=== PATIENT | male | born 1995 | race Caucasian/White ===

== ENCOUNTER 2017-08-03 23:20 | Emergency (ER) | payer OTHER ==
[2017-08-03 23:29] VITALS: RESP 18
[2017-08-04] MEDS ORDERED: ONDANSETRON ODT 4 MG TAB PO STA (01:42)
[2017-08-04] MEDS ORDERED: cloNIDine HCL 0.1 MG TAB PO STA (01:42)
--- NOTE | 2017-08-04 01:44 | ED ---
General Adult HPI - General Chief complaint: Recheck/Abnormal Lab/Rx Stated complaint: Suicidal Time Seen by Provider: 08/04/17 00:36 Source: patient Mode of arrival: ambulatory Limitations: no limitations - History of Present Illness Initial comments: 22-year-old male patient presents to the emergency department today complaining of opiate withdrawal. Patient states that he does use heroin. States he last used yesterday. Patient states he was admitted to [facility] today, states that he was not receiving the treatment he felt was appropriate so he did leave the facility. Patient states he changed his mind and went back to the facility however there would not accept him. States that they drove him here. Patient states that he is feeling nauseated, shaky, and has a headache. States he is having hot and cold flashes. He states that feels like he is withdrawing from opiates. He denies any suicidal or homicidal ideation. He states that he never told staff at [facility] that he felt suicidal. Patient denies any recent rash, fever, shortness breath, chest pain, abdominal pain, diarrhea, constipation, back pain, numbness, tingling, dizziness, weakness, hematuria, dysuria, urinary urgency, urinary frequency, visual changes, or any other complaints. - Related Data Home Medications Medication Instructions Recorded Confirmed No Known Home Medications [No 08/03/17 08/03/17 Known Home Medications] Allergies Allergy/AdvReac Type Severity Reaction Status Date / Time No Known Allergies Allergy Verified 08/03/17 23:29 Review of Systems ROS Statement: Those systems with pertinent positive or pertinent negative responses have been documented in the HPI. ROS Other: All systems not noted in ROS Statement are negative. Past Medical History Past Medical History: Asthma History of Any Multi-Drug Resistant Organisms: None Reported Additional Past Surgical History / Comment(s): Rmoval of Pylonytal cisit Past Psychological History: No Psychological Hx Reported Smoking Status: Current every day smoker Past Alcohol Use History: Rare Past Drug Use History: Opiates General Exam Limitations: no limitations General appearance: alert, in no apparent distress, other (This is a well- developed, well-nourished adult male patient in no acute distress. Vital signs upon presentation are temperature 98.3F, pulse 102, respirations 18, blood pressure 129/79, pulse ox 97% on room air.) Eye exam: Present: normal appearance, PERRL, EOMI. Absent: scleral icterus, conjunctival injection, periorbital swelling ENT exam: Present: normal exam, normal oropharynx, mucous membranes moist Respiratory exam: Present: normal lung sounds bilaterally. Absent: respiratory distress, wheezes, rales, rhonchi, stridor Cardiovascular Exam: Present: regular rate, normal rhythm, normal heart sounds. Absent: systolic murmur, diastolic murmur, rubs, gallop, clicks GI/Abdominal exam: Present: soft, normal bowel sounds. Absent: distended, tenderness, guarding, rebound, rigid Neurological exam: Present: alert, oriented X3, CN II-XII intact Psychiatric exam: Present: normal affect, normal mood Skin exam: Present: warm, dry, intact, normal color. Absent: rash Course Vital Signs 08/03/17 08/04/17 08/04/17 23:23 00:44 01:47 Temperature 98.3 F 98.9 F Pulse Rate 102 H 91 69 Respiratory 18 18 18 Rate Blood Pressure 129/79 136/73 149/72 O2 Sat by Pulse 97 96 96 Oximetry Medical Decision Making - Medical Decision Making 22-year-old male patient presented to the emergency department today for evaluation of opiate withdrawal. Denies suicidal or homicidal ideation. Physical examination was unremarkable. I did call [facility] and asked that they be willing to accept the patient back. They decline stating it is against policy to accept someone back after they left their property without supervision. I did discuss this with the patient. Did offer to treat his symptoms with clonidine and Zofran. He will be discharged to follow-up outpatient for rehabilitation services. He is advised against restart any use of heroin. Return parameters were discussed in detail. He verbalized understanding and agreed with this plan. Disposition Clinical Impression: Opiate withdrawal Disposition: HOME SELF-CARE Condition: Good Instructions: Opioid Withdrawal (ED) Additional Instructions: Follow-up for rehabilitation services. Follow-up with her primary care physician for recheck in 1-2 days. Return here immediately for any new, worsening, or concerning symptoms. Is patient prescribed a controlled substance at d/c from ED?: No Referrals: None,Stated [Primary Care Provider] - 1-2 days Time of Disposition: 01:44
[2017-08-04 01:48] VITALS: BP 149/72; PULSE 69; TEMP 98.9
== END 2017-08-04 02:07 | disposition home or self-care (01) ==
LOC: EC 23:20
DX: F11.23 Opioid dependence with withdrawal (principal); R11.0 Nausea; R51 Headache; F17.200 Nicotine dependence, unspecified, uncomplicated
CPT/HCPCS: 99284

== ENCOUNTER 2017-08-04 19:24 | Emergency (ER) | payer OTHER ==
[2017-08-04] MEDS ORDERED: ONDANSETRON ODT 4 MG TAB PO STA (20:12)
[2017-08-04] MEDS ORDERED: cloNIDine HCL 0.1 MG TAB PO STA ×2 (20:12→21:34)
--- NOTE | 2017-08-04 21:12 | ED ---
Psych HPI - General Chief Complaint: Psychiatric Symptoms Stated Complaint: mental health Time Seen by Provider: 08/04/17 19:51 Source: patient Mode of arrival: ambulatory - History of Present Illness Initial Comments: 22-year-old male patient presents the emergency department today for mental health evaluation. Patient is currently withdrawing from heroin. States that he was at [facility] yesterday, left the premises, and they would not readmit him. Patient states he did speak to them on the phone today, states that he needed to have a psychiatric evaluation before he would be cleared to return to the facility. Patient reports physical symptoms including anxiety, nausea, body aches, and shaking. He has not had any vomiting. Patient states that he feels like he is in withdrawal. He denies any suicidal or homicidal ideation. Denies any hallucinations. Denies any alcohol or drug use today. - Related Data Home Medications Medication Instructions Recorded Confirmed Buprenorphine HCl [Subutex] 8 mg SL DAILY 08/04/17 08/04/17 Previous Rx's Medication Instructions Recorded Ondansetron [Zofran ODT] 4 mg PO Q8HR PRN #10 tab 08/04/17 cloNIDine HCL [Catapres] 0.1 mg PO Q8H PRN #6 tab 08/04/17 Allergies Allergy/AdvReac Type Severity Reaction Status Date / Time No Known Allergies Allergy Verified 08/03/17 23:29 Review of Systems ROS Statement: Those systems with pertinent positive or pertinent negative responses have been documented in the HPI. ROS Other: All systems not noted in ROS Statement are negative. Past Medical History Past Medical History: Asthma History of Any Multi-Drug Resistant Organisms: None Reported Additional Past Surgical History / Comment(s): Rmoval of Pylonytal cisit Past Psychological History: No Psychological Hx Reported Smoking Status: Current every day smoker Past Alcohol Use History: Rare Past Drug Use History: Cocaine, Heroin, Marijuana, Opiates, Prescription Drug Abuse General Exam Limitations: no limitations General appearance: alert, in no apparent distress, anxious, other (This is a well-developed, well-nourished adult male patient no acute distress. Vital signs upon presentation are temperature 98.1F, pulse 111, respirations 16, blood pressure 155/67, pulse ox 100% on room air.) Eye exam: Present: normal appearance, PERRL, EOMI. Absent: scleral icterus, conjunctival injection, periorbital swelling ENT exam: Present: normal exam, normal oropharynx, mucous membranes moist Respiratory exam: Present: normal lung sounds bilaterally. Absent: respiratory distress, wheezes, rales, rhonchi, stridor Cardiovascular Exam: Present: regular rate, normal rhythm, normal heart sounds. Absent: systolic murmur, diastolic murmur, rubs, gallop, clicks Neurological exam: Present: alert, oriented X3, CN II-XII intact, other (Shaky) Psychiatric exam: Present: agitated, anxious Skin exam: Present: warm, dry, intact, normal color. Absent: rash Course Vital Signs 08/04/17 08/04/17 08/04/17 19:57 21:00 21:50 Temperature 98.1 F 97.0 F L 97.9 F Pulse Rate 111 H 51 L 89 Respiratory 16 16 17 Rate Blood Pressure 155/67 113/72 136/62 O2 Sat by Pulse 100 99 100 Oximetry Medical Decision Making - Medical Decision Making 22-year-old male patient presented to the emergency department today for mental health evaluation for clearance to return to [facility] facility. Patient denied any suicidal or homicidal ideation. He does report going through opiate withdrawals. Physical examination was relatively unremarkable but patient was shaky and anxious during the exam. [facility] did perform their evaluation spoke to psychiatrist who does not feel patient needs inpatient criteria at this time. He does not appear to be a risk to himself or others. Patient does have an appointment to call [facility] in the morning for possible readmission. We will treat his symptoms with clonidine and Zofran. He 'll be given a prescription for these medications. [facility] has arranged a bed for him at the local homeless nursing home until he can make these phone calls in the morning. He is instructed to follow-up with the primary care physician for recheck as soon as possible. Return parameters were discussed in detail. He verbalizes understanding and agrees with these plans. - Lab Data Lab Results 08/04/17 Range/Units 20:53 Urine Opiates Screen Not Detected (NotDetected) Ur Oxycodone Screen Not Detected (NotDetected) Urine Methadone Screen Not Detected (NotDetected) Ur Propoxyphene Screen Not Detected (NotDetected) Ur Barbiturates Screen Not Detected (NotDetected) U Tricyclic Antidepress Not Detected (NotDetected) Ur Phencyclidine Scrn Not Detected (NotDetected) Ur Amphetamines Screen Not Detected (NotDetected) U Methamphetamines Scrn Not Detected (NotDetected) U Benzodiazepines Scrn Not Detected (NotDetected) Urine Cocaine Screen Detected H (NotDetected) U Marijuana (THC) Screen Detected H (NotDetected) Disposition Clinical Impression: Heroin withdrawal Disposition: HOME SELF-CARE Condition: Good Instructions: Opioid Withdrawal (ED) Additional Instructions: Take medications as directed. Follow-up with [facility] as you have planned. Return here immediately for any new, worsening, or concerning symptoms. Prescriptions: cloNIDine HCL [Catapres] 0.1 mg PO Q8H PRN #6 tab PRN Reason: withdrawal symptoms Ondansetron [Zofran ODT] 4 mg PO Q8HR PRN #10 tab PRN Reason: Nausea Is patient prescribed a controlled substance at d/c from ED?: No Referrals: None,Stated [Primary Care Provider] - 1-2 days Time of Disposition: 21:29
[2017-08-04 21:18] LABS: Amphetamine Screen,Urine Not Detected (NotDetected); Barbiturate Screen,Urine Not Detected (NotDetected); Benzodiazepines Screen,Urine Not Detected (NotDetected); Cocaine Screen,Urine Detected (NotDetected); Methadone Screen, Urine Not Detected (NotDetected); Opiate Screen,Urine Not Detected (NotDetected); Oxycodone Screen, Urine Not Detected (NotDetected); Phencyclidine Screen,Urine Not Detected (NotDetected); Tricyclic Antidepressant,Urine Not Detected (NotDetected); Urn Cannabinoid Scrn Detected (NotDetected)
[2017-08-04] MEDS ORDERED: ONDANSETRON 4 MG ODT STARTER PACK 2 TAB BTL PO STA (21:34)
[2017-08-04 21:52] VITALS: BP 136/62; PULSE 89; RESP 17; TEMP 97.9
== END 2017-08-04 21:51 | disposition home or self-care (01) ==
LOC: EC 19:24
DX: F11.23 Opioid dependence with withdrawal (principal); F17.200 Nicotine dependence, unspecified, uncomplicated
CPT/HCPCS: 99284; 82075; 80306; S0119

== ENCOUNTER 2017-08-05 09:24 | Inpatient (IN) | payer OTHER ==
[2017-08-05 10:12] LABS: Amphetamine Screen,Urine Not Detected (NotDetected); Barbiturate Screen,Urine Not Detected (NotDetected); Benzodiazepines Screen,Urine Not Detected (NotDetected); Cocaine Screen,Urine Detected (NotDetected); Methadone Screen, Urine Not Detected (NotDetected); Opiate Screen,Urine Not Detected (NotDetected); Oxycodone Screen, Urine Not Detected (NotDetected); Phencyclidine Screen,Urine Not Detected (NotDetected); Tricyclic Antidepressant,Urine Not Detected (NotDetected); Urn Cannabinoid Scrn Detected (NotDetected)
--- NOTE | 2017-08-05 10:31 | ED ---
Psych HPI - General Chief Complaint: Psychiatric Symptoms Stated Complaint: EPS eval Time Seen by Provider: 08/05/17 09:39 Source: patient, RN notes reviewed Mode of arrival: ambulatory - History of Present Illness Initial Comments: 22-year-old male presents emergency from for psychiatric evaluation. Patient states he is here last night and had evaluation and discharge. Patient states he lives to home 1 to be admitted. He states he is suicidal states that he does not want to worry as he would kill himself he would rather just not be here. Patient denies any homicidal ideation. Patient has a history of drug abuse for last 6 years has been in rehab in psychiatric facilities. Patient denies any physical complaints at this time. Patient has not used opiates 2 days. Patient did admit to some crack cocaine use. - Related Data Previous Rx's Medication Instructions Recorded Ondansetron [Zofran ODT] 4 mg PO Q8HR PRN #10 tab 08/04/17 cloNIDine HCL [Catapres] 0.1 mg PO Q8H PRN #6 tab 08/04/17 Allergies Allergy/AdvReac Type Severity Reaction Status Date / Time No Known Allergies Allergy Verified 08/05/17 09:44 Review of Systems ROS Statement: Those systems with pertinent positive or pertinent negative responses have been documented in the HPI. ROS Other: All systems not noted in ROS Statement are negative. Past Medical History Past Medical History: Asthma History of Any Multi-Drug Resistant Organisms: None Reported Additional Past Surgical History / Comment(s): Rmoval of Pylonytal cisit Past Psychological History: No Psychological Hx Reported Smoking Status: Current every day smoker Past Alcohol Use History: Rare Past Drug Use History: Cocaine, Heroin, Marijuana, Opiates, Prescription Drug Abuse General Exam Limitations: no limitations General appearance: alert, in no apparent distress Head exam: Present: atraumatic, normocephalic, normal inspection Eye exam: Present: normal appearance, PERRL, EOMI. Absent: scleral icterus, conjunctival injection, periorbital swelling ENT exam: Present: normal exam, normal oropharynx, mucous membranes moist Neck exam: Present: normal inspection, full ROM. Absent: tenderness, meningismus, lymphadenopathy Respiratory exam: Present: normal lung sounds bilaterally. Absent: respiratory distress, wheezes, rales, rhonchi, stridor Cardiovascular Exam: Present: regular rate, normal rhythm, normal heart sounds. Absent: systolic murmur, diastolic murmur, rubs, gallop, clicks GI/Abdominal exam: Present: soft, normal bowel sounds. Absent: distended, tenderness, guarding, rebound, rigid Neurological exam: Present: alert, oriented X3, CN II-XII intact Psychiatric exam: Present: depressed Skin exam: Present: warm, dry, intact, normal color. Absent: rash Course Vital Signs 08/05/17 08/05/17 08/05/17 09:27 18:10 19:03 Temperature 98 F 98.2 F Pulse Rate 84 86 54 L Respiratory 20 18 18 Rate Blood Pressure 107/57 114/59 111/50 O2 Sat by Pulse 99 98 100 Oximetry Medical Decision Making - Medical Decision Making 22-year-old male presented for psychiatric evaluation. Patient attempted to be transferred to [facility] though after 10 hours this was not processed. Patient will be admitted here - Lab Data Result diagrams: 08/05/17 12:40 08/05/17 12:40 Lab Results 08/05/17 08/05/17 08/05/17 Range/Units 09:51 12:40 12:40 WBC 4.7 (3.8-10.6) k/uL RBC 4.62 (4.30-5.90) m/uL Hgb 13.1 (13.0-17.5) gm/dL Hct 39.4 (39.0-53.0) % MCV 85.1 (80.0-100.0) fL MCH 28.4 (25.0-35.0) pg MCHC 33.4 (31.0-37.0) g/dL RDW 13.3 (11.5-15.5) % Plt Count 252 (150-450) k/uL Neutrophils % 65 % Lymphocytes % 24 % Monocytes % 6 % Eosinophils % 1 % Basophils % 1 % Neutrophils # 3.1 (1.3-7.7) k/uL Lymphocytes # 1.1 (1.0-4.8) k/uL Monocytes # 0.3 (0-1.0) k/uL Eosinophils # 0.1 (0-0.7) k/uL Basophils # 0.0 (0-0.2) k/uL Sodium 142 (137-145) mmol/L Potassium 4.5 (3.5-5.1) mmol/L Chloride 106 (98-107) mmol/L Carbon Dioxide 25 (22-30) mmol/L Anion Gap 11 mmol/L BUN 14 (9-20) mg/dL Creatinine 0.84 (0.66-1.25) mg/dL Est GFR (CKD-EPI)AfAm >90 (>60 ml/min/1.73 sqM) Est GFR (CKD-EPI)NonAf >90 (>60 ml/min/1.73 sqM) Glucose 113 H (74-99) mg/dL Calcium 9.4 (8.4-10.2) mg/dL Total Bilirubin 1.7 H (0.2-1.3) mg/dL AST 21 (17-59) U/L ALT 32 (21-72) U/L Alkaline Phosphatase 68 (38-126) U/L Total Protein 7.0 (6.3-8.2) g/dL Albumin 4.2 (3.5-5.0) g/dL Urine Opiates Screen Not Detected (NotDetected) Ur Oxycodone Screen Not Detected (NotDetected) Urine Methadone Screen Not Detected (NotDetected) Ur Propoxyphene Screen Not Detected (NotDetected) Ur Barbiturates Screen Not Detected (NotDetected) U Tricyclic Antidepress Not Detected (NotDetected) Ur Phencyclidine Scrn Not Detected (NotDetected) Ur Amphetamines Screen Not Detected (NotDetected) U Methamphetamines Scrn Not Detected (NotDetected) U Benzodiazepines Scrn Not Detected (NotDetected) Urine Cocaine Screen Detected H (NotDetected) U Marijuana (THC) Screen Detected H (NotDetected) Disposition Clinical Impression: Depression, Polysubstance abuse Disposition: ADMITTED IP TO THIS [facility] Condition: Stable Time of Disposition: 11:40
[2017-08-05] MEDS ORDERED: diphenhydrAMINE 50 MG CAP PO STA (12:04)
[2017-08-05 12:48] LABS: Basophils % (A) 1 %; Eosinophils # (A) 0.1 k/uL (0-0.7); Eosinophils % (A) 1 %; HCT 39.4 % (39.0-53.0); HGB 13.1 gm/dL (13.0-17.5); Lymphocytes # (A) 1.1 k/uL (1.0-4.8); Lymphocytes % (A) 24 %; MCH 28.4 pg (25.0-35.0); MCHC 33.4 g/dL (31.0-37.0); MCV 85.1 fL (80.0-100.0); Monocytes # (A) 0.3 k/uL (0-1.0); Monocytes % (A) 6 %; Neutrophils # (A) 3.1 k/uL (1.3-7.7); Neutrophils % (A) 65 %; Platelet Count 252 k/uL (150-450); RBC 4.62 m/uL (4.30-5.90); RDW 13.3 % (11.5-15.5); WBC 4.7 k/uL (3.8-10.6)
[2017-08-05 12:59] LABS: ALT 32 U/L (21-72); AST 21 U/L (17-59); Albumin 4.2 g/dL (3.5-5.0); Alkaline Phosphatase 68 U/L (38-126); Anion Gap 11 mmol/L; Blood Urea Nitrogen 14 mg/dL (9-20); Calcium 9.4 mg/dL (8.4-10.2); Carbon Dioxide 25 mmol/L (22-30); Chloride 106 mmol/L (98-107); Glucose 113 mg/dL (74-99); Potassium 4.5 mmol/L (3.5-5.1); Sodium 142 mmol/L (137-145); Total Bilirubin 1.7 mg/dL (0.2-1.3)
[2017-08-05] MEDS ORDERED: ZIPRASIDONE 20 MG VIAL IM STA (14:15)
[2017-08-05] MEDS ORDERED: NICOTINE 14MG/24HR PATCH TRANSDERM STA (15:08)
[2017-08-05] MEDS ORDERED: LORazepam 2 MG/ML INJ IM STA (15:29)
[2017-08-05] MEDS ORDERED: HALOPERIDOL LACTATE 5 MG/ML 1 ML VIAL IM STA (15:29)
[2017-08-05] MEDS ORDERED: ACETAMINOPHEN TAB 325 MG TAB PO PRN (20:55)
[2017-08-05] MEDS ORDERED: LORazepam 1 MG TAB PO PRN (20:55)
[2017-08-05] MEDS ORDERED: MAG HYDROX/AL HYDROX/SIMETH 30 ML CUP PO PRN (20:55)
[2017-08-05] MEDS ORDERED: MAGNESIUM HYDROXIDE 2,400 MG/10 ML CUP PO PRN (20:55)
[2017-08-05] MEDS ORDERED: ONDANSETRON 4 MG TAB PO PRN (21:02)
[2017-08-05] MEDS ORDERED: LOPERAMIDE 2 MG CAP PO PRN (21:03)
[2017-08-05] MEDS ORDERED: ZIPRASIDONE 20 MG VIAL IM PRN (21:09)
[2017-08-05 23:35] VITALS: BMI 22.6
--- NOTE | 2017-08-06 00:13 | P.HPMEDMHU ---
History of Present Illness H&P Date: 08/06/17 Chief Complaint: Suicidal ideation, HPI for mental health unit The patient is a 22-year-old male with a past medical history of depression and asthma who is admitted to the mental health unit after being condition by the court. Apparently the patient was brought here from [place] after being there for approximately 5 hours, he is from [place] and has been stranded here for the last several days. The patient reported that initially she told the child care coordinator that he was suffering from suicidal ideation planning to overdose on heroin because he had nowhere to stayand did not want to be roaming the streets in [place]. The patient denies any somatic complaints, he reports a history of asthma That appears to be well controlled and denies any cough or wheezing, and reports that he uses his rescue inhaler pretty rarely. The patient did report that he found approximately half a gram of cocaine while roaming the streets yesterday and reported that he did snort cocaine. He denies any chest pain or shortness of breath. Review of Systems All of the 12 point of systems negative except per HPI The patient reports some insomnia, feeling restless otherwise has no complaints Past Medical History Past Medical History: Asthma History of Any Multi-Drug Resistant Organisms: None Reported Additional Past Surgical History / Comment(s): Rmoval of Pylonytal cisit Smoking Status: Current every day smoker Medications and Allergies Home Medications Medication Instructions Recorded Confirmed Type Ondansetron [Zofran ODT] 4 mg PO Q8HR PRN #10 tab 08/04/17 08/05/17 Rx cloNIDine HCL [Catapres] 0.1 mg PO Q8H PRN #6 tab 08/04/17 08/05/17 Rx Allergies Allergy/AdvReac Type Severity Reaction Status Date / Time No Known Allergies Allergy Verified 08/05/17 09:44 Physical Exam Vitals: Vital Signs Temp Pulse Pulse Resp BP BP Pulse Ox 08/05/17 23:24 97.8 F 86 16 131/67 08/05/17 19:03 54 L 18 111/50 100 08/05/17 18:10 98.2 F 86 18 114/59 98 08/05/17 09:27 98 F 84 20 107/57 99 Intake and Output 08/05/17 08/05/17 08/06/17 14:59 22:59 06:59 Other: Weight 68.039 kg 67.7 kg Constitutional: No acute distress, conversant, pleasant Eyes: Anicteric sclerae, moist conjunctiva, no lid-lag, PERRLA ENMT: NC/AT,Oropharynx clear, no erythema, exudates Neck:Supple, FROM, no masses, or JVD, No carotid bruits; No thyromegaly Lungs: Clear to auscultation, Clear to percussion, Normal respiratory effort, no accessory muscle use Cardiovascular: Heart regular in rate and rhythm, No murmurs, gallops, or rubs no peripheral edema Abdominal: Soft Nontender, nom distended, no guarding, no rebound or rigidity, Normoactive bowel sounds No hepatomegaly, No splenomegaly, No palpable mass No abdominal wall hernia noted Skin: Normal temperature, tone, texture, turgor, No induration No subcutaneous nodules, No rash, lesions, No ulcers Extremities:No digital cyanosis No clubbing, Pedal pulses intact and symmetrical Radial pulses intact and symmetrical Normal gait and station, No calf tenderness Psychiatric: Alert and oriented to person, place and time, Appropriate affect Intact judgement Neuro: Muscles Strength 5/5 in all 4 extremities, Sensation to light touch grossly present throughout, Cranial nerves II-XII grossly intact. No focal sensory deficits Cranial Nerve Examination - Cranial Nerves Cranial Nerve II- Optic: Intact Cranial Nerve III- Oculomotor: Intact Cranial Nerve IV- Trochlear: Intact Cranial Nerve V- Trigeminal: Intact Cranial Nerve - Abducens: Intact Cranial Nerve VII- Facial: Intact Cranial Nerve VIII- Auditory: Intact Cranial Nerve IX- Glossopharyngeal: Intact Cranial Nerve X- Vagus: Intact Cranial Nerve XI- Accessory: Intact Cranial Nerve XII- Hypoglossal: Intact Results CBC & Chem 7: 08/05/17 12:40 08/05/17 12:40 Labs: Abnormal Lab Results - Last 24 Hours (Table) 08/05/17 08/05/17 Range/Units 09:51 12:40 Glucose 113 H (74-99) mg/dL Total Bilirubin 1.7 H (0.2-1.3) mg/dL Urine Cocaine Screen Detected H (NotDetected) U Marijuana (THC) Screen Detected H (NotDetected) Thrombosis Risk Factor Assmnt - Choose All That Apply Other Risk Factors: No Other congenital or acquired thrombophilia - If yes, enter type in comment: No Assessment and Plan (1) Stable asthma Current Visit: Yes Status: Acute Code(s): J45.909 - UNSPECIFIED ASTHMA, UNCOMPLICATED SNOMED Code(s): 913235375 (2) Depression Current Visit: Yes Status: Acute Code(s): F32.9 - MAJOR DEPRESSIVE DISORDER , SINGLE EPISODE, UNSPECIFIED SNOMED Code(s): 57171870 (3) Polysubstance abuse Current Visit: Yes Status: Acute Code(s): F19.10 - OTHER PSYCHOACTIVE SUBSTANCE ABUSE, UNCOMPLICATED SNOMED Code(s): 150042216 Plan: The patient is admitted to the mental health unit after reporting suicidal ideation which he is currently denying, and apparently said he was planning to overdose on heroin because he did not have anywhere to stay. We'll defer to inpatient psychiatric team regarding any ongoing therapy. Clinically the patient appears to be stable from medical standpoint we'll plan to sign off pending his admission labs. Appreciated the patient to be involved in ongoing care of this patient, for further questions please do not hesitate to contact the [facility] inpatient team
[2017-08-06 08:52] LABS: Basophils % (A) 1 %; Eosinophils # (A) 0.2 k/uL (0-0.7); Eosinophils % (A) 3 %; HCT 42.2 % (39.0-53.0); Lymphocytes # (A) 1.7 k/uL (1.0-4.8); Lymphocytes % (A) 25 %; MCH 28.2 pg (25.0-35.0); MCHC 33.1 g/dL (31.0-37.0); MCV 85.2 fL (80.0-100.0); Mean Platelet Volume 7.6; Monocytes # (A) 0.5 k/uL (0-1.0); Monocytes % (A) 7 %; Neutrophils # (A) 4.3 k/uL (1.3-7.7); Neutrophils % (A) 62 %; Platelet Count 283 k/uL (150-450); RBC 4.95 m/uL (4.30-5.90); RDW 13.3 % (11.5-15.5); WBC 6.9 k/uL (3.8-10.6)
[2017-08-06 09:23] LABS: ALT 30 U/L (21-72); AST 21 U/L (17-59); Albumin 4.4 g/dL (3.5-5.0); Alkaline Phosphatase 80 U/L (38-126); Anion Gap 11 mmol/L; Blood Urea Nitrogen 19 mg/dL (9-20); Calcium 9.6 mg/dL (8.4-10.2); Carbon Dioxide 24 mmol/L (22-30); Chloride 105 mmol/L (98-107); Cholesterol 160 mg/dL (<200); Glucose 103 mg/dL (74-99); HDL Cholesterol 40 mg/dL (40-60); LDL Cholesterol,Calculated 101 mg/dL (0-99); Potassium 4.6 mmol/L (3.5-5.1); Sodium 140 mmol/L (137-145); Total Protein 7.4 g/dL (6.3-8.2); Triglycerides 96 mg/dL (<150)
--- NOTE | 2017-08-06 11:24 | P.HP ---
Psychiatric H&P - . History & Physical: Allergies Allergy/AdvReac Type Severity Reaction Status Date / Time No Known Allergies Allergy Verified 08/05/17 09:44 Vital Signs Temp 97.7 F 08/06/17 00:43 Pulse 99 08/06/17 00:43 Resp 16 08/06/17 00:43 BP 115/68 08/06/17 00:43 Pulse Ox 100 08/05/17 19:03 Intake & Output 08/05/17 08/06/17 08/06/17 18:59 06:59 18:59 Weight 68.039 kg 67.7 kg Laboratory Last Values WBC 6.9 k/uL (3.8-10.6) 08/06/17 07:58 RBC 4.95 m/uL (4.30-5.90) 08/06/17 07:58 Hgb 14.0 gm/dL (13.0-17.5) 08/06/17 07:58 Hct 42.2 % (39.0-53.0) 08/06/17 07:58 MCV 85.2 fL (80.0-100.0) 08/06/17 07:58 MCH 28.2 pg (25.0-35.0) 08/06/17 07:58 MCHC 33.1 g/dL (31.0-37.0) 08/06/17 07:58 RDW 13.3 % (11.5-15.5) 08/06/17 07:58 Plt Count 283 k/uL (150-450) 08/06/17 07:58 Neutrophils % 62 % 08/06/17 07:58 Lymphocytes % 25 % 08/06/17 07:58 Monocytes % 7 % 08/06/17 07:58 Eosinophils % 3 % 08/06/17 07:58 Basophils % 1 % 08/06/17 07:58 Neutrophils # 4.3 k/uL (1.3-7.7) 08/06/17 07:58 Lymphocytes # 1.7 k/uL (1.0-4.8) 08/06/17 07:58 Monocytes # 0.5 k/uL (0-1.0) 08/06/17 07:58 Eosinophils # 0.2 k/uL (0-0.7) 08/06/17 07:58 Basophils # 0.0 k/uL (0-0.2) 08/06/17 07:58 Sodium 140 mmol/L (137-145) 08/06/17 07:58 Potassium 4.6 mmol/L (3.5-5.1) 08/06/17 07:58 Chloride 105 mmol/L (98-107) 08/06/17 07:58 Carbon Dioxide 24 mmol/L (22-30) 08/06/17 07:58 Anion Gap 11 mmol/L 08/06/17 07:58 BUN 19 mg/dL (9-20) 08/06/17 07:58 Creatinine 0.80 mg/dL (0.66-1.25) 08/06/17 07:58 Est GFR (CKD-EPI)AfAm >90 (>60 ml/min/1.73 sqM) 08/06/17 07:58 Est GFR (CKD-EPI)NonAf >90 (>60 ml/min/1.73 sqM) 08/06/17 07:58 Glucose 103 mg/dL (74-99) H 08/06/17 07:58 Calcium 9.6 mg/dL (8.4-10.2) 08/06/17 07:58 Total Bilirubin 1.0 mg/dL (0.2-1.3) 08/06/17 07:58 AST 21 U/L (17-59) 08/06/17 07:58 ALT 30 U/L (21-72) 08/06/17 07:58 Alkaline Phosphatase 80 U/L (38-126) 08/06/17 07:58 Total Protein 7.4 g/dL (6.3-8.2) 08/06/17 07:58 Albumin 4.4 g/dL (3.5-5.0) 08/06/17 07:58 Triglycerides 96 mg/dL (<150) 08/06/17 07:58 Cholesterol 160 mg/dL (<200) 08/06/17 07:58 LDL Cholesterol, Calc 101 mg/dL (0-99) H 08/06/17 07:58 HDL Cholesterol 40 mg/dL (40-60) 08/06/17 07:58 TSH 2.230 mIU/L (0.465-4.680) 08/06/17 07:58 Urine Opiates Screen Not Detected (NotDetected) 08/05/17 09:51 Ur Oxycodone Screen Not Detected (NotDetected) 08/05/17 09:51 Urine Methadone Screen Not Detected (NotDetected) 08/05/17 09:51 Ur Propoxyphene Screen Not Detected (NotDetected) 08/05/17 09:51 Ur Barbiturates Screen Not Detected (NotDetected) 08/05/17 09:51 U Tricyclic Antidepress Not Detected (NotDetected) 08/05/17 09:51 Ur Phencyclidine Scrn Not Detected (NotDetected) 08/05/17 09:51 Ur Amphetamines Screen Not Detected (NotDetected) 08/05/17 09:51 U Methamphetamines Scrn Not Detected (NotDetected) 08/05/17 09:51 U Benzodiazepines Scrn Not Detected (NotDetected) 08/05/17 09:51 Urine Cocaine Screen Detected (NotDetected) H 08/05/17 09:51 U Marijuana (THC) Screen Detected (NotDetected) H 08/05/17 09:51 08/06/17 11:11 IDENTIFYING DATA: This patient is a 22-year-old single male who was admitted to the mental health unit through the emergency room on a petition and clinical certificate for presumed suicidal ideation. HPI: The patient presents with a petition noting he made a statement that he would overdose with heroin if he was discharged from the hospital. The patient has a long-standing history of opiate use disorder specifically heroin. He states he's been shooting heroin daily since 02/18/2017. He is only had a very brief sobriety prior to that. He was at [facility] for approximate 5 hours and then left because of heroin withdrawal symptoms. He came to the emergency room was treated and discharged. He states he slept in the [facility] until 7 AM the next day and then walked around town. He re-presented to the hospital with similar symptoms he states he was symptomatically treated and discharged back to the [facility]. Rather than leaving in the morning he decided he needed to be admitted for safety reasons. He now states that he was untruthful about his suicidal statements and he needs to go home. He reports he no longer wants to go back to [facility]. He indicates he has no symptoms of depression. He states for the last year he has not had any significant anxiety but prior to 1 year ago he did deal with anxiety and a regular basis. He is reporting no acute suicidal or homicidal ideation he is endorsing no hallucinations or specific delusions. He states he has never had a hypomanic or manic episode. PAST PSYCHIATRIC HISTORY: This is the patient's fourth inpatient psychiatric admission. The first one was in the context of withdrawing from Xanax and he was experiencing psychosis, the second admission was due to symptoms from withdrawing from heroin as was the third admission. He reports no history of suicide attempt but he did have one accidental overdose with heroin. He states in the past he was misdiagnosed with bipolar disorder and was given Depakote and invega injections. He does not have any outpatient counseling or psychiatric care arranged. PMH: None reported ALLERGIES: NO KNOWN DRUG ALLERGIES MEDICATIONS: None CHEMICAL DEPENDENCY HISTORY: He reports using heroin for several years at least 3. He has been consistently using on a daily basis since February 18. He had a sobriety from October 25 through February 18 before he relapsed. He [place] and use that prior to this admission and he reports he uses marijuana on a regular basis but none in the last several weeks. His urine drug screen was positive for cocaine and marijuana. He reports he had 2 beers yesterday in a bar ordinarily does not drink. He has been to inpatient chemical dependency treatment twice in the past. The first one was a 9 month stay in [place] and the second was a 14 month stay at another facility. FAMILY PSYCHIATRIC HISTORY: None reported, no suicides in the family FAMILY CHEMICAL DEPENDENCY HISTORY: He states his mother overuses alcohol SOCIAL HISTORY: The patient is 22 years old she single he has no children he resides with his older brother who is 23 years old. He has a girlfriend of several months and she to uses heroin. He is employed at [employer] for the past 4 months. 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 He has a high school education he reports graduating with a 3.4 GPA with no special education assistance. No history of service. He has another half-brother. He reports he is from [facility] and was raised by both parents. 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 Legal history he was arrested for retail fraud. No abuse history reported. MENTAL STATUS EXAM: The patient's is an alert male with longer hair eye contact is appropriate speech is fluent spontaneous nonpressured. He indicates his mood is good he states he has no hopelessness thinking or any suicidal ideation intent or plan. He denies having any auditory or visual hallucinations or any specific delusions. Thought process for the most part is linear he demonstrates no tangential thinking loose associations or flight of ideas. Insight and judgment limited. He demonstrates no verbal or physical aggressiveness he demonstrates no abnormal involuntary movements. Cognitively he is alert and oriented to person place and date he is able to name the days of the week backwards. STRENGTHS/WEAKNESSES: Drinks: Housing, employment weaknesses: Ongoing use of heroin with recent use of cocaine and alcohol INTELLECTUAL FUNCTIONING: Average IMPRESSIONS: [] 1. Depression unspecified rule out mood symptoms secondary to opiate withdrawal , opiate use disorder, rule out cannabis use disorder PLAN: The patient has been admitted to the mental health unit he is willing to sign in voluntarily. We reviewed his presenting symptoms and treatment options. He denies symptoms that are consistent with a major depressive disorder or bipolar disorder at this time. He is endorsing no psychosis. He is now recanting his suicidal statements. He does not wish to be prescribed a medication and at this time there is no reason to suggest one. We do need to assess his safety risks especially in the context of him changing elements of his story since he has been at the hospital. He states he will give permission for us to speak with his brother. We will monitor him for safety he is encouraged to participate in the milieu. He will be seen by internal medicine for routine history and physical exam. I anticipate a shorter stay for him on the mental health unit.
[2017-08-06] MEDS: NICOTINE 14MG/24HR PATCH TRANSDERM SCH (14:38)
[2017-08-06] MEDS: LORazepam 1 MG TAB PO PRN (15:32)
[2017-08-06 17:20] LABS: Hemoglobin A1C 5.8 % (4.0-6.0)
[2017-08-06] MEDS ORDERED: LORazepam 1 MG TAB PO STA (22:59)
[2017-08-07] MEDS: NICOTINE 14MG/24HR PATCH TRANSDERM SCH ×2 (09:34→12:26)
--- NOTE | 2017-08-07 12:28 | P.PN ---
Progress Note - Text Interval history: The patient is found in his room sleeping he is verbally arousable and follows me to an interview room. He describes a variety of emotions as he continues to go through heroin withdrawal and withdrawal from recent cocaine use. He admits that not only did he snort cocaine he was smoking crack cocaine and that had been a regular part of his substance use. He had a phone call from his brother who is just been clean from heroin for 4-5 days. The patient verbalizes several reasons why he wants to stay clean and he states he is hopeful that he will be happy again because he remembers being happy when sober. He is concerned about continuing the relationship with his girlfriend as she is too using illicit drugs. The patient shares a drawing and a story he has written about drug use and describes it to me in detail. Mental status exam: The patient is alert he is mildly disheveled hygiene is adequate is dressed in his own clothing. He reports that he is feeling better he is reporting no suicidal ideation intent or plan. No report of auditory or visual hallucinations or specific delusions. He does not appear hypomanic or manic. He demonstrates no verbal or physical aggressiveness. He does readily engages in conversation. He demonstrates some appropriate range of affect. Plan: The patient is encouraged to participate more in the milieu. We will monitor him for safety. He is still deferring the option of attending inpatient chemical dependency treatment. Vital signs reviewed.
[2017-08-07] MEDS: LORazepam 1 MG TAB PO PRN (13:22)
[2017-08-07] MEDS: hydrOXYzine PAMOATE 25 MG CAP PO PRN (19:21)
[2017-08-08] MEDS: LORazepam 1 MG TAB PO PRN (00:04)
[2017-08-08 00:36] VITALS: TEMP 98.3
[2017-08-08] MEDS: NICOTINE 14MG/24HR PATCH TRANSDERM SCH ×2 (09:27→16:37)
[2017-08-08] MEDS: hydrOXYzine PAMOATE 25 MG CAP PO PRN ×2 (10:57→18:50)
[2017-08-08] MEDS ORDERED: LORazepam 1 MG TAB PO PRN (12:53)
--- NOTE | 2017-08-08 12:56 | P.PN ---
Progress Note - Text Interval history: The patient is found in his room he follows me to an interview room. Again he pulled the mattress off his bed so that it was on the floor. He reports feeling hopeful. He had another conversation with his brother whom he expects will pick him up tomorrow. The patient denies having any suicidal thoughts. He continues to think about the importance of his sobriety. He continues to decline wanting to return to [place]. Mental status exam: The patient is alert he is dressed in his own clothing eye contact is appropriate speech is fluent and spontaneous nonpressured. He denies having any suicidal or homicidal ideation intent or plan. Reports no hopelessness thinking. He denies having any auditory or visual hallucinations or specific delusions. There is no observed evidence of psychosis. Insight and judgment improving. He demonstrates no tangential thinking loose associations or flight of ideas. Plan: The patient will continue participating in the milieu. We will monitor him for safety. He is reporting no ongoing acute symptoms of heroin withdrawal. It is likely we will discharge him from the mental health unit tomorrow if he demonstrates further improvement and is clinically stable. He is encouraged to participate in inpatient chemical dependency treatment but he is deferring that treatment option at this time.
[2017-08-09 05:50] VITALS: BP 122/68; PULSE 86; RESP 16
[2017-08-09] MEDS: hydrOXYzine PAMOATE 25 MG CAP PO PRN (07:06)
[2017-08-09] MEDS: NICOTINE 14MG/24HR PATCH TRANSDERM SCH (09:25)
--- NOTE | 2017-08-09 11:11 | P.DS ---
Providers Date of admission: 08/05/17 19:24 Expected date of discharge: 08/09/17 Attending physician: Carlos Rodriguez Consults: 08/05/17 20:55 Consult Physician Routine Consulting Provider: Herberth Whipple Consult Reason/Comments: medical management Do you want consulting provider notified?: Already Contacted Primary care physician: Physician Nonstaff - Discharge Diagnosis(es) (1) Substance or medication-induced depressive disorder Current Visit: Yes Status: Acute Priority: High (2) Opioid use disorder, severe, dependence Current Visit: Yes Status: Acute Priority: High Hospital Course: Brief summary of admission note: This patient is a 22-year-old single male who was admitted to the mental health unit through the emergency room for presumed suicidal ideation. The patient made a statement that if he wasn't admitted to the hospital he would overdose with heroin. He has a long-standing history of opiate use disorder and has been using heroin intravenously on a daily basis. He was originally admitted to [facility] and only remain there for 5 hours and then came to the hospital. He was experiencing opiate withdrawal symptoms reported suicidal ideation and was admitted to our unit. For full detail please refer to the psychiatric evaluation dated 08/06/2017. Summary of hospital course: The patient was admitted to the mental health unit on the petition and clinical certificate but he did sign in voluntarily. When I assessed him he indicated that he did not have any suicidal ideation and he said that so that he could receive treatment or his opiate withdrawal symptoms. We discussed that he needed to be held for observation to assess his risk factors. He indicated no history of major depressive episodes hypomanic or manic episodes and he was reporting no symptoms of psychosis. He admits to struggling with daily use of heroin and he has been recently using crack cocaine as well. He was encouraged to return to [facility] for inpatient chemical dependency treatment but he refuses that option. He lives in [facility] and plans to return there upon discharge. No psychotropic medication was felt to be necessary area we did symptomatically treat him during opiate withdrawal. He was seen by internal medicine for routine history and physical exam. Throughout this hospitalization he has denied having any suicidal ideation. Mental status exam: The patient is a male appearing his stated age. Hygiene and grooming are adequate. Eye contact is appropriate speech is fluent spontaneous nonpressured. He indicates his mood is good he is happy that he is being discharged today. He reports no hopelessness thinking no suicidal or homicidal ideation intent or plan. He reports no auditory or visual hallucinations or any specific delusions or is no observed evidence of psychosis. Thought process is linear he demonstrates no tangential thinking loose associations or flight of ideas. He does not appear hypomanic or manic. He demonstrates no abnormal involuntary movements he demonstrates no verbal or physical aggressiveness. Insight and judgment grossly intact. He is oriented to person place and date. He is able to demonstrate a euthymic affect with a normal range of expression. Impressions 1 depression secondary to opiate withdrawal, rule out history of major depressive disorder, opiate use disorder, cannabis use disorder, rule out cocaine use disorder Plan: The patient's will be discharged from the mental health unit today. He plans on having his brother calm and pick him up and he will return to their residence. The patient does not require a prescribed psychotropic medication at this time. He does not wish to trial naltrexone. He does not wish to participate in inpatient chemical dependency treatment although it's highly recommended. At this time there is no imminent safety risk is appropriate for transition outpatient care. We discussed that if he uses alcohol or want cocaine and heroin or any other illicit drug this will elevate his safety risk. Social work will arrange his outpatient follow-up. He is instructed to return to the nearest emergency room if any acute safety concerns. Patient Condition at Discharge: Stable Plan - Discharge Summary Discharge Rx Participant: No New Discharge Prescriptions: New Nicotine 14Mg/24Hr Patch [Habitrol] 1 patch TRANSDERM DAILY #10 patch Discontinued cloNIDine HCL [Catapres] 0.1 mg PO Q8H PRN #6 tab PRN Reason: withdrawal symptoms Ondansetron [Zofran ODT] 4 mg PO Q8HR PRN #10 tab PRN Reason: Nausea Discharge Medication List Nicotine 14Mg/24Hr Patch [Habitrol] 1 patch TRANSDERM DAILY #10 patch 08/09/17 [ Rx] Follow up Appointment(s)/Referral(s): Nonstaff,Physician [Primary Care Provider] - 1-2 days
== END 2017-08-09 18:45 | disposition home or self-care (01) | DRG 885 ==
LOC: EC 09:24 → 3MHU 19:24
PROVIDERS: ADMIT Psychiatry & Neurology Psychiatry; ATTEND Psychiatry & Neurology Psychiatry
DX: F32.89 Other specified depressive episodes (principal); F11.23 Opioid dependence with withdrawal; R45.851 Suicidal ideations; F12.90 Cannabis use, unspecified, uncomplicated; F14.90 Cocaine use, unspecified, uncomplicated; F17.200 Nicotine dependence, unspecified, uncomplicated
CPT/HCPCS: 36415; 80053; 80061; 80306; 82075; 83036; 84443; 85025; 96372; 99285

== ENCOUNTER 2021-07-17 15:14 | Emergency (ER) | payer OTHER ==
--- NOTE | 2021-07-17 22:16 | ED ---
General Adult HPI - General Stated complaint: Chest pain Time Seen by Provider: 07/17/21 21:22 Source: patient, RN notes reviewed Mode of arrival: ambulatory Limitations: no limitations - History of Present Illness Initial comments: 26-year-old male presents to the emergency department for evaluation after brief experience of left-sided chest pain prior to arrival. Patient states he was checking in at [facility] for inpatient treatment to heroine and cocaine use. 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 Patient denies fever, chills, headache, ongoing chest discomfort, shortness of breath, difficulty breathing or abdominal pain, nausea, vomiting, diarrhea, or dysuria. History of daily IVDA. Last use 24 hours ago. - Related Data Home Medications Medication Instructions Recorded Confirmed No Known Home Medications 07/17/21 07/17/21 Allergies Allergy/AdvReac Type Severity Reaction Status Date / Time No Known Allergies Allergy Verified 07/17/21 22:24 Review of Systems ROS Statement: Those systems with pertinent positive or pertinent negative responses have been documented in the HPI. ROS Other: All systems not noted in ROS Statement are negative. Past Medical History Past Medical History: Asthma History of Any Multi-Drug Resistant Organisms: None Reported Additional Past Surgical History / Comment(s): Rmoval of Pylonytal cisit Past Psychological History: No Psychological Hx Reported Past Alcohol Use History: Rare Past Drug Use History: Cocaine, Heroin, Marijuana, Opiates, Prescription Drug Abuse General Exam Limitations: no limitations (This is a pleasant, well-developed, well-nourished male in no acute distress.) General appearance: alert, in no apparent distress Eye exam: Present: normal appearance, PERRL, EOMI. Absent: scleral icterus, conjunctival injection, periorbital swelling, periorbital tenderness ENT exam: Present: normal exam, normal oropharynx, mucous membranes moist Neck exam: Present: normal inspection, full ROM. Absent: tenderness, meningismus, lymphadenopathy Respiratory exam: Present: normal lung sounds bilaterally. Absent: respiratory distress, wheezes, rales, rhonchi, stridor, chest wall tenderness, accessory muscle use Cardiovascular Exam: Present: regular rate, normal rhythm, bradycardia (Baseline rate and rhythm for patient), normal heart sounds. Absent: systolic murmur, diastolic murmur, rubs, gallop, clicks GI/Abdominal exam: Present: soft, normal bowel sounds. Absent: distended, tenderness, guarding, rebound, rigid Back exam: Absent: CVA tenderness (R), CVA tenderness (L) Neurological exam: Present: alert, oriented X3, CN II-XII intact Psychiatric exam: Present: normal affect, normal mood Skin exam: Present: warm, dry, intact, normal color. Absent: rash Course Vital Signs 07/17/21 22:40 Temperature 98.0 F Pulse Rate 50 L Respiratory 16 Rate Blood Pressure 123/74 Medical Decision Making - Medical Decision Making This is a pleasant 26-year-old female with a past medical history of daily cocaine and heroin abuse. He presents to the emergency department under the advisement of [facility] for evaluation of a brief episode of left-sided chest pain that resolved prior to arrival. Upon exam, patient is well-appearing and in no acute distress. Patient insists that this pain was attributed to positioning and is in no way related to his heart or lungs. This patient is reasonable, insisting that his previous discomfort is in no way related to his heart or lungs. Discussed risks associated with IV drug use and endocarditis. Patient has not been febrile nor experienced any additional episodes of chest pain. Physical exam findings are unremarkable. Chest Xray negative. Patient will be discharged back to [facility] with strict return parameters. He verbalizes understanding and agrees with this plan. Attending: Nirmala. - EKG Data EKG shows normal: sinus rhythm Rate: bradycardia EKG Comments: EKG obtained at 1604 shows sinus bradycardia with possible right ventricular conduction delay. Ventricular rate 44, ID interval 151, QRS duration 95, QT/QTc 423/373. Interpretation: borderline ECG. - Radiology Data Radiology results: report reviewed, image reviewed Two-view chest x-ray was obtained. Report was reviewed in its entirety. Impression per Dr. Mckeon is normal chest. Disposition Clinical Impression: Anterior chest wall pain Disposition: HOME SELF-CARE Condition: Stable Instructions (If sedation given, give patient instructions): Noncardiac Chest Pain (ED) Additional Instructions: Patient is medically clear to return to [facility] for inpatient treatment. Return to the emergency department with any new, worsening, or concerning symptoms such as ongoing chest pain, difficulty breathing, or shortness of breath. Is patient prescribed a controlled substance at d/c from ED?: No Referrals: None,Stated [Primary Care Provider] - 1-2 days Time of Disposition: 22:31
--- NOTE | 2021-07-17 22:27 | XR ---
EXAMINATION TYPE: XR chest 2V DATE OF EXAM: 07/17/2021 COMPARISON: NONE HISTORY: Chest pain TECHNIQUE: 2 views FINDINGS: Heart and mediastinum are normal. Lungs are clear. The extremities are normal. Bony thorax appears normal. IMPRESSION: Normal chest.
[2021-07-17 22:52] VITALS: BP 123/74; PULSE 50; RESP 16; TEMP 98
== END 2021-07-17 22:40 | disposition home or self-care (01) ==
LOC: EC 15:14
DX: R07.89 Other chest pain (principal); J45.909 Unspecified asthma, uncomplicated; F12.90 Cannabis use, unspecified, uncomplicated; Z72.89 Other problems related to lifestyle
CPT/HCPCS: 71046; 99285